=== PATIENT | female | born 1935 | race Hispanic/Latino ===

== ENCOUNTER 2021-01-15 08:55 | Inpatient (IN) | payer MEDICARE ==
[2021-01-12 11:33] LABS: BASOPHILS # (AUTO) 0.1 (0.0-0.1); BASOPHILS % 1.1 % (0.0-1.0); EOSINOPHILS # (AUTO) 0.1 (0.0-0.4); HEMATOCRIT 32.7 % (34.2-44.1); HEMOGLOBIN 10.8 g/dL (12.0-16.0); LYMPHOCYTES # (AUTO) 1.4 (1.0-3.2); LYMPHOCYTES % 30.3 % (18.0-39.1); MEAN CORPUSCULAR HEMOGLOBIN 31.4 pg (28-32); MEAN CORPUSCULAR VOLUME 95.1 fL (81-99); MONOCYTES # (AUTO) 0.3 (0.2-0.8); MONOCYTES % 5.8 % (4.4-11.3); NEUTROPHILS # (AUTO) 2.7 (2.1-6.9); NEUTROPHILS % 60.6 % (38.7-80.0); PLATELET COUNT 161 x10e3/uL (140-360); RED BLOOD COUNT 3.44 x10e6/uL (3.6-5.1); RED CELL DISTRIBUTION WIDTH 14.6 % (11.7-14.4)
[2021-01-12 11:54] LABS: ALBUMIN 4.2 g/dL (3.5-5.0); ALBUMIN/GLOBULIN RATIO 1.3 (0.8-2.0); ANION GAP 14.9 mmol/L (8-16); CALCIUM 9.5 mg/dL (8.4-10.2); CREATININE, SERUM 1.34 mg/dL (0.57-1.11); POTASSIUM 3.9 mmol/L (3.5-5.1)
[2021-01-12 16:52] LABS: INR 0.89; PARTIAL THROMBOPLASTIN TIME 25.4 seconds (23.8-35.5); PROTHROMBIN TIME 9.9 seconds (11.9-14.5)
[2021-01-15] VITALS (10 sets, daily range): BP systolic 124–143; BP diastolic 57–67
[~2021-01-15] VITALS: Ht 165.1 cm; Wt 60.3 kg
[~2021-01-15 08:55] MED LIST: ALLOPURINOL100 MG PO; ALPHAGAN P5 ML OU; AZOR 5-20 MG T1 EACH PO; CRESTOR10 MG PO; LUMIGAN2.5 M1 OU; NEURONTIN100 MG PO; TRAZODONE HCL100 MG PO; VASCEPA1 GM PO
[2021-01-15] MEDS ORDERED: CEFAZOLIN SOD 1 GM/NS 50ML 50 ML IV ONE (09:42)
[2021-01-15] MEDS ORDERED: MANNITOL 25% 12.5GM/50ML 50 ML ONE (09:44)
[2021-01-15] MEDS ORDERED: DEXAMETHASONE SOD PHOS INJ 4 MG/ML VIAL ONE (11:54)
[2021-01-15] MEDS ORDERED: ONDANSETRON HCL INJ 2MG/ML 2ML 2 MG/ML VIAL ONE (11:54)
[2021-01-15] MEDS ORDERED: LIDOCAINE HCL 2% LOCAL INJ 5 ML SDV VIAL INJ ONE (11:54)
[2021-01-15] MEDS ORDERED: SEVOFLURANE INHAL SOLN 250 ML PEN BTL ONE (11:54)
[2021-01-15] MEDS ORDERED: ROCURONIUM BROMIDE 10 MG/ML 5ML VIAL IV ONE (11:54)
[2021-01-15] MEDS ORDERED: EPHEDRINE SULFATE INJ 50 MG/ML VIAL ONE (11:54)
[2021-01-15] MEDS ORDERED: PROPOFOL IV EMULSION 10 MG/ML 20 ML VIAL ONE (11:54)
[2021-01-15] MEDS ORDERED: POVIDONE IODINE 0.05% 0.05 % ML PO ONE (11:54)
[2021-01-15] MEDS ORDERED: SUGAMMADEX SODIUM 200 MG/2 ML VIAL IV ONE (12:26)
[2021-01-15] MEDS ORDERED: ONDANSETRON HCL INJ 2MG/ML 2ML 2 MG/ML VIAL IV PRN (13:00)
[2021-01-15] MEDS ORDERED: NALOXONE HCL INJ 0.4 MG/ML AMP IV PRN (13:00)
[2021-01-15] MEDS ORDERED: PHENAZOPYRIDINE HCL 100 MG TAB PO PRN (13:00)
[2021-01-15] MEDS: MORPHINE SULFATE 1 MG/ML 30ML PCA IV PRN (13:10)
[2021-01-15] MEDS ORDERED: FENTANYL CITRATE/PF 100MCG/2 ML INJ ONE ×2 (13:36→19:29)
[2021-01-15 13:38] LABS: BASOPHILS % 0.3 % (0.0-1.0); EOSINOPHILS # (AUTO) 0.1 (0.0-0.4); EOSINOPHILS % 0.8 % (0.0-6.0); HEMATOCRIT 29.7 % (34.2-44.1); HEMOGLOBIN 9.6 g/dL (12.0-16.0); LYMPHOCYTES # (AUTO) 0.8 (1.0-3.2); LYMPHOCYTES % 12.6 % (18.0-39.1); MEAN CORPUSCULAR HEMOGLOBIN 30.7 pg (28-32); MEAN CORPUSCULAR HGB CONC 32.3 g/dL (31-35); MEAN CORPUSCULAR VOLUME 94.9 fL (81-99); MONOCYTES # (AUTO) 0.1 (0.2-0.8); MONOCYTES % 1.8 % (4.4-11.3); NEUTROPHILS # (AUTO) 5.2 (2.1-6.9); NEUTROPHILS % 84.2 % (38.7-80.0); PLATELET COUNT 126 x10e3/uL (140-360); RED BLOOD COUNT 3.13 x10e6/uL (3.6-5.1); RED CELL DISTRIBUTION WIDTH 14.3 % (11.7-14.4)
[2021-01-15 14:10] LABS: ANION GAP 13.7 mmol/L (8-16); CALCIUM 8.4 mg/dL (8.4-10.2); CREATININE, SERUM 1.07 mg/dL (0.57-1.11); POTASSIUM 3.7 mmol/L (3.5-5.1)
[2021-01-15] MEDS: SODIUM CHLORIDE 0.9% 250ML IRRIG IR SCH ×4 (14:39→20:35)
[2021-01-15] MEDS ORDERED: ACETAMINOPHEN 1000 MG/100 ML IV PRN (15:00)
[2021-01-15] MEDS: D5.45%NS/KCL 20MEQ 1,000 ML IV SCH ×2 (15:11→20:35)
[2021-01-15] MEDS: CEFAZOLIN SOD 1 GM/NS 50ML 50 ML IV SCH (17:34)
[2021-01-15] MEDS: DIPHENHYDRAMINE HCL INJ 50 MG/ML VIAL IM PRN (20:35)
[2021-01-16] VITALS (21 sets, daily range): BP systolic 103–142; BP diastolic 47–72
[2021-01-16] MEDS: DIPHENHYDRAMINE HCL INJ 50 MG/ML VIAL IM PRN (00:45)
[2021-01-16] MEDS: CEFAZOLIN SOD 1 GM/NS 50ML 50 ML IV SCH ×3 (00:45→17:16)
[2021-01-16] MEDS: MORPHINE SULFATE 1 MG/ML 30ML PCA IV PRN (02:58)
[2021-01-16] MEDS: D5.45%NS/KCL 20MEQ 1,000 ML IV SCH ×2 (05:02→13:05)
[2021-01-16] MEDS: SODIUM CHLORIDE 0.9% 250ML IRRIG IR SCH ×5 (05:02→20:50)
[2021-01-16 05:10] LABS: BASOPHILS % 0.2 % (0.0-1.0); HEMATOCRIT 32.7 % (34.2-44.1); HEMOGLOBIN 10.3 g/dL (12.0-16.0); LYMPHOCYTES # (AUTO) 0.5 (1.0-3.2); MEAN CORPUSCULAR HEMOGLOBIN 30.5 pg (28-32); MEAN CORPUSCULAR HGB CONC 31.5 g/dL (31-35); MEAN CORPUSCULAR VOLUME 96.7 fL (81-99); MONOCYTES # (AUTO) 0.8 (0.2-0.8); MONOCYTES % 5.9 % (4.4-11.3); NEUTROPHILS # (AUTO) 11.8 (2.1-6.9); NEUTROPHILS % 89.4 % (38.7-80.0); PLATELET COUNT 154 x10e3/uL (140-360); RED BLOOD COUNT 3.38 x10e6/uL (3.6-5.1); RED CELL DISTRIBUTION WIDTH 14.2 % (11.7-14.4)
[2021-01-16 05:32] LABS: CALCIUM 8.1 mg/dL (8.4-10.2); CREATININE, SERUM 1.48 mg/dL (0.57-1.11)
[2021-01-16 05:40] LABS: ANION GAP 13.2 mmol/L (8-16)
[2021-01-16 05:44] LABS: POTASSIUM 5.2 mmol/L (3.5-5.1)
[2021-01-16 08:25] LABS: ANION GAP 10.9 mmol/L (8-16); CALCIUM 7.8 mg/dL (8.4-10.2); CREATININE, SERUM 1.5 mg/dL (0.57-1.11); POTASSIUM 4.9 mmol/L (3.5-5.1)
[2021-01-16] MEDS ORDERED: MORPHINE SULFATE 1 MG/ML 30ML PCA IV PRN (11:45)
[2021-01-16] MEDS: DEXTROSE 5%/0.45% SOD CHL 1,000 ML IV SCH ×2 (14:51→21:40)
[2021-01-17] VITALS (18 sets, daily range): BP systolic 144–182; BP diastolic 59–81
[2021-01-17] MEDS: SODIUM CHLORIDE 0.9% 250ML IRRIG IR SCH ×7 (01:03→23:36)
[2021-01-17] MEDS: CEFAZOLIN SOD 1 GM/NS 50ML 50 ML IV SCH ×3 (02:07→17:38)
[2021-01-17] MEDS: DEXTROSE 5%/0.45% SOD CHL 1,000 ML IV SCH ×4 (05:25→20:35)
[2021-01-17 06:34] LABS: BASOPHILS % 0.1 % (0.0-1.0); EOSINOPHILS % 0.4 % (0.0-6.0); HEMATOCRIT 27.6 % (34.2-44.1); LYMPHOCYTES # (AUTO) 0.9 (1.0-3.2); LYMPHOCYTES % 12.3 % (18.0-39.1); MEAN CORPUSCULAR HGB CONC 32.6 g/dL (31-35); MEAN CORPUSCULAR VOLUME 95.2 fL (81-99); MONOCYTES # (AUTO) 0.6 (0.2-0.8); MONOCYTES % 8.4 % (4.4-11.3); NEUTROPHILS # (AUTO) 5.6 (2.1-6.9); NEUTROPHILS % 78.4 % (38.7-80.0); PLATELET COUNT 135 x10e3/uL (140-360); RED CELL DISTRIBUTION WIDTH 14.6 % (11.7-14.4)
[2021-01-17 06:57] LABS: ALBUMIN 2.7 g/dL (3.5-5.0); ALBUMIN/GLOBULIN RATIO 1.1 (0.8-2.0); ANION GAP 11.9 mmol/L (8-16); CALCIUM 8.1 mg/dL (8.4-10.2); CREATININE, SERUM 1.37 mg/dL (0.57-1.11); POTASSIUM 3.9 mmol/L (3.5-5.1)
[2021-01-17] MEDS ORDERED: BISACODYL 10 MG SUPP PR ONE (20:00)
[2021-01-18] VITALS (17 sets, daily range): BP systolic 112–178; BP diastolic 65–88
[2021-01-18] MEDS: CEFAZOLIN SOD 1 GM/NS 50ML 50 ML IV SCH ×3 (02:11→17:44)
[2021-01-18] MEDS: SODIUM CHLORIDE 0.9% 250ML IRRIG IR SCH (02:12)
[2021-01-18] MEDS: DEXTROSE 5%/0.45% SOD CHL 1,000 ML IV SCH ×3 (04:47→20:41)
[2021-01-18 05:30] LABS: BASOPHILS % 0.2 % (0.0-1.0); EOSINOPHILS # (AUTO) 0.1 (0.0-0.4); EOSINOPHILS % 1.1 % (0.0-6.0); HEMATOCRIT 28.6 % (34.2-44.1); HEMOGLOBIN 9.4 g/dL (12.0-16.0); LYMPHOCYTES % 15.4 % (18.0-39.1); MEAN CORPUSCULAR HEMOGLOBIN 30.6 pg (28-32); MEAN CORPUSCULAR HGB CONC 32.9 g/dL (31-35); MEAN CORPUSCULAR VOLUME 93.2 fL (81-99); MONOCYTES # (AUTO) 0.6 (0.2-0.8); MONOCYTES % 8.8 % (4.4-11.3); NEUTROPHILS # (AUTO) 4.9 (2.1-6.9); PLATELET COUNT 133 x10e3/uL (140-360); RED BLOOD COUNT 3.07 x10e6/uL (3.6-5.1)
[2021-01-18 06:03] LABS: ANION GAP 10.4 mmol/L (8-16); CALCIUM 8.4 mg/dL (8.4-10.2); CREATININE, SERUM 1.05 mg/dL (0.57-1.11); POTASSIUM 3.4 mmol/L (3.5-5.1)
[2021-01-18] MEDS: DOCUSATE SODIUM 100 MG CAP PO SCH ×2 (09:27→17:44)
[2021-01-18] MEDS: BISACODYL 5 MG TAB EC PO PRN (09:27)
[2021-01-18] MEDS: ACETAMINOPHEN/CODEINE 300MG - 30MG TAB PO PRN ×2 (14:53→23:36)
[2021-01-19] VITALS (9 sets, daily range): BP systolic 142–165; BP diastolic 50–79
[2021-01-19] MEDS: CEFAZOLIN SOD 1 GM/NS 50ML 50 ML IV SCH ×3 (01:43→17:23)
[2021-01-19 04:50] LABS: BASOPHILS % 0.4 % (0.0-1.0); EOSINOPHILS # (AUTO) 0.1 (0.0-0.4); HEMATOCRIT 25.6 % (34.2-44.1); HEMOGLOBIN 8.4 g/dL (12.0-16.0); LYMPHOCYTES # (AUTO) 0.9 (1.0-3.2); LYMPHOCYTES % 17.6 % (18.0-39.1); MEAN CORPUSCULAR HEMOGLOBIN 30.7 pg (28-32); MEAN CORPUSCULAR HGB CONC 32.8 g/dL (31-35); MEAN CORPUSCULAR VOLUME 93.4 fL (81-99); MONOCYTES # (AUTO) 0.4 (0.2-0.8); NEUTROPHILS # (AUTO) 3.6 (2.1-6.9); NEUTROPHILS % 71.6 % (38.7-80.0); PLATELET COUNT 131 x10e3/uL (140-360); RED BLOOD COUNT 2.74 x10e6/uL (3.6-5.1)
[2021-01-19 05:05] LABS: ANION GAP 12.4 mmol/L (8-16); CALCIUM 8.3 mg/dL (8.4-10.2); CREATININE, SERUM 1.24 mg/dL (0.57-1.11); POTASSIUM 3.4 mmol/L (3.5-5.1)
[2021-01-19] MEDS: DEXTROSE 5%/0.45% SOD CHL 1,000 ML IV SCH ×2 (05:21→13:40)
[2021-01-19] MEDS: ACETAMINOPHEN/CODEINE 300MG - 30MG TAB PO PRN ×4 (05:21→22:18)
[2021-01-19] MEDS: DOCUSATE SODIUM 100 MG CAP PO SCH ×2 (07:30→17:23)
[2021-01-19] MEDS: BISACODYL 5 MG TAB EC PO PRN ×2 (07:30→14:45)
[2021-01-19] MEDS ORDERED: SIMETHICONE 80 MG CHEW PO PRN (14:00)
[2021-01-19] MEDS ORDERED: POTASSIUM CHLORIDE 20MEQ/15ML UDC PO ONE (14:15)
[2021-01-19] MEDS ORDERED: BISACODYL 10 MG SUPP PR ONE (14:30)
[2021-01-19] MEDS ORDERED: KCL 20 MEQ PACKET/ ORAL SOLN NG ONE (14:30)
[2021-01-19] MEDS ORDERED: KCL 20 MEQ PACKET/ ORAL SOLN PO ONE (14:30)
[2021-01-19] MEDS ORDERED: PERIPHERAL TPN FORMULA 1 BAG IV SCH (20:00)
[2021-01-20] VITALS (7 sets, daily range): BP systolic 121–160; BP diastolic 59–86
[2021-01-20] MEDS: CEFAZOLIN SOD 1 GM/NS 50ML 50 ML IV SCH ×2 (02:00→10:02)
[2021-01-20] MEDS: ACETAMINOPHEN/CODEINE 300MG - 30MG TAB PO PRN ×4 (03:08→22:34)
[2021-01-20 05:37] LABS: BASOPHILS % 0.7 % (0.0-1.0); EOSINOPHILS # (AUTO) 0.1 (0.0-0.4); EOSINOPHILS % 2.6 % (0.0-6.0); HEMATOCRIT 23.7 % (34.2-44.1); HEMOGLOBIN 7.8 g/dL (12.0-16.0); LYMPHOCYTES # (AUTO) 0.9 (1.0-3.2); LYMPHOCYTES % 18.5 % (18.0-39.1); MEAN CORPUSCULAR HGB CONC 32.9 g/dL (31-35); MONOCYTES # (AUTO) 0.4 (0.2-0.8); MONOCYTES % 8.9 % (4.4-11.3); NEUTROPHILS # (AUTO) 3.2 (2.1-6.9); NEUTROPHILS % 68.9 % (38.7-80.0); PLATELET COUNT 161 x10e3/uL (140-360); RED BLOOD COUNT 2.52 x10e6/uL (3.6-5.1)
[2021-01-20 05:52] LABS: ANION GAP 10.8 mmol/L (8-16); CALCIUM 8.5 mg/dL (8.4-10.2); CREATININE, SERUM 1.2 mg/dL (0.57-1.11); POTASSIUM 3.8 mmol/L (3.5-5.1)
[2021-01-20] MEDS: DOCUSATE SODIUM 100 MG CAP PO SCH ×2 (09:36→17:03)
[2021-01-20] MEDS: CEFAZOLIN SOD 1 GM in SODIUM CHLORIDE 0.9% 50ML 50 ML IV SCH (17:04)
[2021-01-21 00:20] VITALS: BP 184/74
[2021-01-21] MEDS: CEFAZOLIN SOD 1 GM in SODIUM CHLORIDE 0.9% 50ML 50 ML IV SCH ×2 (01:20→07:40)
[2021-01-21 04:00] VITALS: BP 175/67
[2021-01-21] MEDS: ACETAMINOPHEN/CODEINE 300MG - 30MG TAB PO PRN (04:03)
[2021-01-21] MEDS: DOCUSATE SODIUM 100 MG CAP PO SCH (07:40)
[2021-01-21 07:44] VITALS: BP 146/58
[2021-01-21 08:27] VITALS: BP 146/58
[2021-01-21 11:35] VITALS: BP 161/71
[2021-01-21] MEDS ORDERED: ULTRAM50 MG PO (14:43)
[2021-01-21 15:00] VITALS: BP 134/83
== END 2021-01-21 15:15 | disposition home or self-care (01) | DRG 657 ==
LOC: OR 08:55 → PACU V 12:51 → ICU 14:28 → IMCU 01-18 14:11
PROVIDERS: ADMIT Internal Medicine; ATTEND Internal Medicine
PROC: 0TB00ZZ Excision of Right Kidney, Open Approach (ICD-10-PCS; principal; 2021-01-15 11:00)
DX: C64.1 Malignant neoplasm of right kidney, except renal pelvis (principal); N17.9 Acute kidney failure, unspecified; N39.46 Mixed incontinence; N28.1 Cyst of kidney, acquired; E66.9 Obesity, unspecified; E87.5 Hyperkalemia; I10 Essential (primary) hypertension; E78.5 Hyperlipidemia, unspecified; Z20.822 Contact with and (suspected) exposure to COVID-19
CPT/HCPCS: 36415; 71045; 71046; 80048; 80053; 82565; 83735; 85025; 85610; 85730; 86850; 86900; 86920; 88305; 88307; 88309; 88329; 88331; 88342; 93005; 96367; 97139; J0690; J1100; J1200; J2001; J2150; J2270; J2405; J3010

== ENCOUNTER → 2021-10-18 | Outpatient (CLI) | payer MEDICARE, OTHER ==
[~2021-10-18] MED LIST changes: +ULTRAM50 MG PO
== END ==
LOC: US 13:46
PROVIDERS: ATTEND Urology
DX: N18.9 Chronic kidney disease, unspecified (principal); N28.1 Cyst of kidney, acquired
CPT/HCPCS: 71046; 76770

== ENCOUNTER → 2022-02-11 | Outpatient (CLI) | payer MEDICARE, OTHER | LOC: CT 13:50 | PROVIDERS: ATTEND Urology | DX: N20.0 Calculus of kidney (principal) | CPT/HCPCS: 74176 ==

== ENCOUNTER → 2022-06-01 | Outpatient (CLI) | payer MEDICARE, OTHER ==
[2022-06-01 10:45] LABS: CREATININE, SERUM 1.37 mg/dL (0.57-1.11)
== END ==
LOC: MRI 09:58
PROVIDERS: ATTEND Urology
DX: C64.1 Malignant neoplasm of right kidney, except renal pelvis (principal); N18.9 Chronic kidney disease, unspecified; N28.1 Cyst of kidney, acquired; K86.89 Other specified diseases of pancreas
CPT/HCPCS: 36415; 74181; 82565; 84520

== ENCOUNTER → 2022-12-29 | Outpatient (CLI) | payer MEDICARE, OTHER | LOC: US 09:54 | PROVIDERS: ATTEND Urology | DX: C64.1 Malignant neoplasm of right kidney, except renal pelvis (principal) | CPT/HCPCS: 71046; 76770 ==

== ENCOUNTER → 2025-02-27 | Outpatient (REF) | payer MEDICARE, OTHER | LOC: US 13:37 | PROVIDERS: ATTEND Urology | DX: C64.1 Malignant neoplasm of right kidney, except renal pelvis (principal) | CPT/HCPCS: 71046; 76770; 76857 ==